=== PATIENT | female | born 1965 | race Caucasian/White ===

== ENCOUNTER 2016-08-13 13:58 | Emergency (ER) | payer MEDICARE | END 2016-08-13 18:52 | disposition home or self-care (01) | LOC: ER 13:58 | DX: R10.31 Right lower quadrant pain (principal); B35.6 Tinea cruris; E11.9 Type 2 diabetes mellitus without complications; E66.01 Morbid (severe) obesity due to excess calories; E78.00 Pure hypercholesterolemia, unspecified; F17.210 Nicotine dependence, cigarettes, uncomplicated; Z98.51 Tubal ligation status; Z79.899 Other long term (current) drug therapy | CPT/HCPCS: 36415; 96361; 96374; 96375; J1885; Q9967 ==

== ENCOUNTER 2016-08-25 16:02 | Emergency (ER) | payer MEDICARE | END 2016-08-25 17:39 | disposition home or self-care (01) | LOC: ER 16:02 | DX: L03.311 Cellulitis of abdominal wall (principal); E11.9 Type 2 diabetes mellitus without complications; E66.9 Obesity, unspecified; F17.210 Nicotine dependence, cigarettes, uncomplicated; Z98.51 Tubal ligation status ==